=== PATIENT | female | born 1980 | race African-American/Black ===

== ENCOUNTER 2016-06-08 03:53 | Emergency (ER) | payer MEDICAID ==
[~2016-06-08] VITALS: Ht 160 cm; Wt 88.0 kg
[2016-06-08] MEDS ORDERED: ONDANSETRON HCL 4MG/2ML VIAL IV STA (04:23)
[2016-06-08] MEDS ORDERED: SODIUM CHLORIDE 0.9% 1,000 ML IV ONE (04:23)
[2016-06-08] MEDS ORDERED: MORPHINE SULFATE 4 MG/ML CPJ (NOT FOR IM USE) IV STA (04:23)
[2016-06-08 05:13] LABS: BASOPHILS % 0.5 % (0.0-2.0); HEMOGLOBIN. 13.2 g/dL (12.0-16.0); LYMPHOCYTES % 15.1 % (20.0-50.0); MEAN CORPUSCULAR HEMOGLOBIN 28.4 pg (28.0-32.0); MEAN CORPUSCULAR VOLUME 86.1 fL (81.0-99.0); MEAN PLATELET VOLUME 7.3 fl (7.4-10.4); MONOCYTES % 9.8 % (2.0-8.0); NEUTROPHILS % 73.6 % (40.0-76.0); PLATELET 318 x1000/uL (130-400); RED BLOOD CELL COUNT 4.65 mill/uL (4.2-5.4); RED CELL DISTRIBUTION WIDTH 14.7 % (11.6-14.6); WHITE BLOOD COUNT 10.2 x1000/uL (4.5-11.0)
[2016-06-08 05:28] LABS: HCG SCREEN NEGATIVE
[2016-06-08 05:34] LABS: ALBUMIN 3.6 g/dL (3.4-5.0); CALCIUM 8.7 mg/dL (8.5-10.1); CARBON DIOXIDE 26 mEq/L (21-32); ETHANOL BLOOD < 10 mg/dL; INDEX HEMOLYSI 1 (1-3); INDEX ICTERIC 1 (1-4); INDEX LIPEMIC 1 (1-3); LIPASE 116 IU/L (73-393); UREA NITROGEN BLOOD 8 mg/dL (7-21); eGFR > 60 mL/min (>60)
[2016-06-08 05:36] LABS: ALANINE AMINOTRANSFERASE 20 IU/L (13-61)
[2016-06-08 05:41] LABS: ANION GAP 14; CHLORIDE 105 mEq/L (98-107)
[2016-06-08] MEDS ORDERED: KETOROLAC 30MG/ML VIAL IV ONE (05:45)
[2016-06-08] MEDS ORDERED: VISCOUS LIDOCAINE 2% 15 ML UDC PO STA (05:46)
[2016-06-08] MEDS ORDERED: MAGNESIUM/ALUMINUM HYDROXIDE/SIMETHICONE 30ML UDC PO STA (05:46)
[2016-06-08 06:39] LABS: CLARITY URINE CLOUDY (CLEAR); COLOR URINE YELLOW (YELLOW); GLUCOSE URINE NEGATIVE (NEGATIVE); KETONES URINE NEGATIVE (NEGATIVE); LEUKOCYTE ESTERASE URINE 3+ (NEGATIVE); NITRITE URINE NEGATIVE (NEGATIVE); OCCULT BLOOD URINE NEGATIVE (NEGATIVE); PROTEIN URINE NEGATIVE (NEGATIVE); SPECIFIC GRAVITY URINE 1.012 (1.005-1.030); UROBILINOGEN URINE 0.2 E.U./dL (0.2-1.0)
[2016-06-08 06:54] LABS: SQUAMOUS EPITHELIAL CELL URINE 3+ /lpf (RARE/1+)
[2016-06-08 06:58] LABS: WBC URINE 25-50 /hpf (0-2)
[2016-06-08 07:02] LABS: BACTERIA URINE 3+; TRICHOMONAS URINE 2+
[2016-06-08] MEDS: METRONIDAZOLE 500MG TABLET PO NR ×2 (07:39→08:26)
[2016-06-08] MEDS ORDERED: MORPHINE SULFATE 2 MG/ML CPJ (NOT FOR IM USE) IV ONE (07:45)
[2016-06-08 08:00] VITALS: BP 144/89
== END 2016-06-08 08:44 | disposition home or self-care (01) ==
LOC: ER 03:53
DX: A59.9 Trichomoniasis, unspecified (principal); N39.0 Urinary tract infection, site not specified; I10 Essential (primary) hypertension; Z87.440 Personal history of urinary (tract) infections; Z98.51 Tubal ligation status
CPT/HCPCS: 36415; 76705; 80053; 81001; 83690; 84703; 85025; 96361; 96374; 96375; 96376; 99285; G0482; J1885; J2270; J2405; J7030; Z7610

== ENCOUNTER 2016-08-07 21:04 | Emergency (ER) | payer MEDICAID ==
[~2016-08-07] VITALS: Ht 160 cm; Wt 91.0 kg
[2016-08-07 23:38] LABS: CLARITY URINE CLOUDY (CLEAR); COLOR URINE YELLOW (YELLOW); GLUCOSE URINE NEGATIVE (NEGATIVE); KETONES URINE NEGATIVE (NEGATIVE); LEUKOCYTE ESTERASE URINE 3+ (NEGATIVE); NITRITE URINE NEGATIVE (NEGATIVE); OCCULT BLOOD URINE NEGATIVE (NEGATIVE); PH URINE 6.5 (4.5-8.0); PROTEIN URINE NEGATIVE (NEGATIVE); SPECIFIC GRAVITY URINE 1.013 (1.005-1.030); UROBILINOGEN URINE 0.2 E.U./dL (0.2-1.0)
[2016-08-08] MEDS ORDERED: SODIUM CHLORIDE 0.9% 1,000 ML IV ONE
[2016-08-08] MEDS ORDERED: KETOROLAC 30MG/ML VIAL IV ONE
[2016-08-08 00:15] LABS: EOSINOPHILS % 2.3 % (0.0-5.0); HEMATOCRIT. 39.2 % (36.0-48.0); HEMOGLOBIN. 13.2 g/dL (12.0-16.0); LYMPHOCYTES % 35.7 % (20.0-50.0); MEAN CORPUSCULAR HEMOGLOBIN 28.8 pg (28.0-32.0); MEAN CORPUSCULAR VOLUME 85.3 fL (81.0-99.0); MEAN PLATELET VOLUME 7.4 fl (7.4-10.4); PLATELET 288 x1000/uL (130-400); RED CELL DISTRIBUTION WIDTH 13.6 % (11.6-14.6)
[2016-08-08 00:20] LABS: CHLORIDE 104 mEq/L (98-107)
[2016-08-08 00:25] LABS: CARBON DIOXIDE 27 mEq/L (21-32)
[2016-08-08 02:30] VITALS: BP 136/76
== END 2016-08-08 02:30 | disposition home or self-care (01) ==
LOC: ER 21:04
DX: N39.0 Urinary tract infection, site not specified (principal); I10 Essential (primary) hypertension; F17.200 Nicotine dependence, unspecified, uncomplicated; F12.90 Cannabis use, unspecified, uncomplicated
CPT/HCPCS: 36415; 80048; 81001; 83690; 85025; 96361; 96374; 99284; J1885; J7030; Z7610

== ENCOUNTER 2017-03-25 13:37 | Emergency (ER) | payer MEDICAID ==
[~2017-03-25] VITALS: Ht 167.6 cm; Wt 74.0 kg
[2017-03-25 13:41] VITALS: BP 131/80
[2017-03-25] MEDS ORDERED: SODIUM CHLORIDE 0.9% 1,000 ML IV ONE (14:32)
[2017-03-25] MEDS ORDERED: KETOROLAC 30MG/ML VIAL IV ONE (14:45)
[2017-03-25 14:54] LABS: BASOPHILS % 0.5 % (0.0-2.0); EOSINOPHILS % 1.2 % (0.0-5.0); HEMATOCRIT. 40.5 % (36.0-48.0); HEMOGLOBIN. 13.3 g/dL (12.0-16.0); LYMPHOCYTES % 16.9 % (20.0-50.0); MEAN CORPUSCULAR HEMOGLOBIN 28.1 pg (28.0-32.0); MEAN CORPUSCULAR VOLUME 85.7 fL (81.0-99.0); MONOCYTES % 9.4 % (2.0-8.0); PLATELET 314 x1000/uL (130-400); RED BLOOD CELL COUNT 4.73 mill/uL (4.2-5.4); RED CELL DISTRIBUTION WIDTH 14.1 % (11.6-14.6)
[2017-03-25 15:09] LABS: CHLORIDE 105 mEq/L (98-107)
[2017-03-25 15:17] LABS: HCG SCREEN NEGATIVE
[2017-03-25 16:02] LABS: CLARITY URINE CLOUDY (CLEAR); COLOR URINE YELLOW (YELLOW); KETONES URINE NEGATIVE (NEGATIVE); LEUKOCYTE ESTERASE URINE 3+ (NEGATIVE); NITRITE URINE NEGATIVE (NEGATIVE); OCCULT BLOOD URINE 3+ (NEGATIVE); PH URINE 8.5 (4.5-8.0); PROTEIN URINE NEGATIVE (NEGATIVE); SPECIFIC GRAVITY URINE 1.014 (1.005-1.030); UROBILINOGEN URINE 0.2 E.U./dL (0.2-1.0)
== END 2017-03-25 18:12 | disposition home or self-care (01) ==
LOC: ER 14:03
DX: A59.01 Trichomonal vulvovaginitis (principal); B37.3 Candidiasis of vulva and vagina; N39.0 Urinary tract infection, site not specified; F12.10 Cannabis abuse, uncomplicated
CPT/HCPCS: 36415; 76856; 80053; 81001; 83690; 84703; 85025; 96361; 96374; 99285; J1885; J7030

== ENCOUNTER 2017-11-29 15:05 | Emergency (ER) | payer MEDICAID ==
[~2017-11-29] VITALS: Ht 157.5 cm; Wt 91.0 kg
[2017-11-29] MEDS ORDERED: KETOROLAC 15MG/ML VIAL IM ONE (17:00)
[2017-11-29 17:28] LABS: KETONES URINE NEGATIVE (NEGATIVE); LEUKOCYTE ESTERASE URINE 2+ (NEGATIVE); NITRITE URINE NEGATIVE (NEGATIVE); OCCULT BLOOD URINE 3+ (NEGATIVE); PROTEIN URINE 1+ (NEGATIVE); SPECIFIC GRAVITY URINE 1.005 (1.005-1.030); UROBILINOGEN URINE 0.2 E.U./dL (0.2-1.0)
[2017-11-29 17:30] LABS: CLARITY URINE HAZY (CLEAR)
[2017-11-29 17:31] LABS: COLOR URINE RED (YELLOW)
[2017-11-29 17:50] VITALS: BP 131/52
== END 2017-11-29 18:28 | disposition home or self-care (01) ==
LOC: ER 15:05
DX: N94.6 Dysmenorrhea, unspecified (principal); I10 Essential (primary) hypertension; F17.200 Nicotine dependence, unspecified, uncomplicated
CPT/HCPCS: 81003; 81025; 87086; 96372; 99284; J1885

== ENCOUNTER 2018-07-27 04:56 | Emergency (ER) | payer MEDICAID ==
[~2018-07-27] VITALS: Ht 160 cm; Wt 91.0 kg
[2018-07-27 05:48] VITALS: BP 132/94
== END 2018-07-27 07:49 | disposition left against medical advice (07) ==
LOC: ER 04:56
DX: Z53.21 Procedure and treatment not carried out due to patient leaving prior to being seen by health care provider (principal)

== ENCOUNTER 2018-08-24 21:32 | Emergency (ER) | payer MEDICAID ==
[~2018-08-24] VITALS: Ht 160 cm; Wt 91.0 kg
[2018-08-25] MEDS ORDERED: LACTULOSE 20G/30ML UDC PO ONE (02:00)
[2018-08-25] MEDS ORDERED: LORAZEPAM 1MG TABLET PO ONE (02:00)
[2018-08-25 02:19] LABS: BASOPHILS % 0.8 % (0.0-2.0); CHLORIDE 107 mEq/L (98-107); EOSINOPHILS % 1.7 % (0.0-5.0); HEMATOCRIT. 37.2 % (36.0-48.0); HEMOGLOBIN. 12.3 g/dL (12.0-16.0); LYMPHOCYTES % 39.9 % (20.0-50.0); MEAN CORPUSCULAR HEMOGLOBIN 28.6 pg (28.0-32.0); MEAN CORPUSCULAR VOLUME 86.2 fL (81.0-99.0); MEAN PLATELET VOLUME 7.2 fl (7.4-10.4); MONOCYTES % 10.4 % (2.0-8.0); NEUTROPHILS % 47.2 % (40.0-76.0); PLATELET 299 x1000/uL (130-400); RED BLOOD CELL COUNT 4.32 mill/uL (4.2-5.4)
[2018-08-25 04:09] LABS: CLARITY URINE CLEAR (CLEAR); COLOR URINE YELLOW (YELLOW); KETONES URINE NEGATIVE (NEGATIVE); LEUKOCYTE ESTERASE URINE TRACE (NEGATIVE); NITRITE URINE NEGATIVE (NEGATIVE); OCCULT BLOOD URINE 2+ (NEGATIVE); PH URINE 5.5 (4.5-8.0); PROTEIN URINE NEGATIVE (NEGATIVE); SPECIFIC GRAVITY URINE 1.015 (1.005-1.030); UROBILINOGEN URINE 0.2 E.U./dL (0.2-1.0)
[2018-08-25 04:27] LABS: *COCAINE SCREEN URINE NEGATIVE (NEGATIVE)
[2018-08-25 04:28] LABS: *AMPHETAMINES SCREEN URINE NEGATIVE (NEGATIVE); *BARBITURATES SCREEN URINE NEGATIVE (NEGATIVE); CANNABINOID URINE SCREEN NEGATIVE (NEGATIVE); METHADONE URINE SCREEN NEGATIVE (NEGATIVE); PHENCYCLIDINE URINE SCREEN NEGATIVE (NEGATIVE)
[2018-08-25 04:32] LABS: *BENZODIAZEPINES SCREEN URINE PRESUMTIVE POSITIVE (NEGATIVE); OPIATES URINE SCREEN PRESUMTIVE POSITIVE (NEGATIVE)
[2018-08-25 06:08] VITALS: BP 118/71
== END 2018-08-25 06:13 | disposition home or self-care (01) ==
LOC: ER 21:32
DX: M54.2 Cervicalgia (principal); N39.0 Urinary tract infection, site not specified; V89.2XXA Person injured in unspecified motor-vehicle accident, traffic, initial encounter; Y93.9 Activity, unspecified; Y92.410 Unspecified street and highway as the place of occurrence of the external cause
CPT/HCPCS: 36415; 72040; 80305; 99284

== ENCOUNTER 2018-09-21 23:12 | Inpatient (IN) | payer MEDICAID ==
[~2018-09-21] VITALS: Ht 312.4 cm; Wt 91.6 kg
[2018-09-22] MEDS ORDERED: MAGNESIUM/ALUMINUM HYDROXIDE/SIMETHICONE 30ML UDC PO STA (00:16)
[2018-09-22 00:58] LABS: CHLORIDE 103 mEq/L (98-107)
[2018-09-22 01:10] LABS: BASOPHILS % 1.2 % (0.0-2.0); EOSINOPHILS % 1.8 % (0.0-5.0); HEMATOCRIT. 37.4 % (36.0-48.0); HEMOGLOBIN. 12.7 g/dL (12.0-16.0); LYMPHOCYTES % 36.8 % (20.0-50.0); MEAN CORPUSCULAR VOLUME 85.4 fL (81.0-99.0); MEAN PLATELET VOLUME 7.3 fl (7.4-10.4); MONOCYTES % 9.8 % (2.0-8.0); NEUTROPHILS % 50.4 % (40.0-76.0); PLATELET 272 x1000/uL (130-400); RED BLOOD CELL COUNT 4.38 mill/uL (4.2-5.4); RED CELL DISTRIBUTION WIDTH 14.1 % (11.6-14.6)
[2018-09-22 02:30] LABS: *AMPHETAMINES SCREEN URINE NEGATIVE (NEGATIVE); *BARBITURATES SCREEN URINE NEGATIVE (NEGATIVE); *COCAINE SCREEN URINE NEGATIVE (NEGATIVE)
[2018-09-22 02:32] LABS: CANNABINOID URINE SCREEN NEGATIVE (NEGATIVE); PHENCYCLIDINE URINE SCREEN NEGATIVE (NEGATIVE)
[2018-09-22 03:04] LABS: *BENZODIAZEPINES SCREEN URINE PRESUMTIVE POSITIVE (NEGATIVE); METHADONE URINE SCREEN PRESUMTIVE POSITIVE (NEGATIVE); OPIATES URINE SCREEN PRESUMTIVE POSITIVE (NEGATIVE)
[2018-09-22] MEDS ORDERED: ASPIRIN 325MG TABLET PO ONE (05:00)
[2018-09-22 08:45] VITALS: BP 119/82
[2018-09-22] MEDS ORDERED: ONDANSETRON HCL 4MG/2ML INJ IV PRN (10:00)
[2018-09-22] MEDS ORDERED: ACETAMINOPHEN 325MG TABLET PO PRN (10:00)
[2018-09-22] MEDS: FAMOTIDINE 20MG TABLET PO SCH ×2 (10:40→20:46)
[2018-09-22 12:00] VITALS: BP 132/88
[2018-09-22] MEDS ORDERED: HYDROCODONE/ACETAMINOPHEN 5/325MG TABLET PO PRN (14:15)
[2018-09-22] MEDS ORDERED: KETOROLAC 15MG/ML VIAL IV PRN (14:15)
[2018-09-22 20:00] VITALS: BP 156/97
[2018-09-22] MEDS: ENOXAPARIN 30MG/0.3ML SYR SUBCUT SCH (20:44)
[2018-09-22] MEDS: LORAZEPAM 1MG TABLET PO PRN (21:46)
[2018-09-23] VITALS: BP 143/86
[2018-09-23 04:00] VITALS: BP 117/72
[2018-09-23 08:00] VITALS: BP 117/65
[2018-09-23] MEDS: ENOXAPARIN 30MG/0.3ML SYR SUBCUT SCH (08:43)
[2018-09-23] MEDS: FAMOTIDINE 20MG TABLET PO SCH (08:43)
[2018-09-23] MEDS ORDERED: ASPIRIN 81MG TABLET PO SCH (09:00)
[2018-09-23 11:49] VITALS: BP 120/78
[2018-09-23 13:07] LABS: BASOPHILS % 0.9 % (0.0-2.0); EOSINOPHILS % 1.1 % (0.0-5.0); HEMATOCRIT. 41.5 % (36.0-48.0); HEMOGLOBIN. 13.9 g/dL (12.0-16.0); LYMPHOCYTES % 25.9 % (20.0-50.0); MEAN CORPUSCULAR VOLUME 86.3 fL (81.0-99.0); MEAN PLATELET VOLUME 7.3 fl (7.4-10.4); MONOCYTES % 10.2 % (2.0-8.0); NEUTROPHILS % 61.9 % (40.0-76.0); PLATELET 324 x1000/uL (130-400); RED CELL DISTRIBUTION WIDTH 14.1 % (11.6-14.6)
[2018-09-23 13:36] LABS: CHLORIDE 106 mEq/L (98-107)
[2018-09-23] MEDS: LORAZEPAM 1MG TABLET PO PRN (13:56)
[2018-09-23 15:21] VITALS: BP 122/65
== END 2018-09-23 15:35 | disposition home or self-care (01) | DRG 58 ==
LOC: ER 23:46 → 8WST 09-22 05:13 → EDBEDREQTM 09-22 05:16 → EDBEDREQ 09-22 05:16 → ENRESERV 09-22 07:15
PROVIDERS: ADMIT Internal Medicine; ATTEND Internal Medicine
DX: R20.0 Anesthesia of skin (principal); F17.210 Nicotine dependence, cigarettes, uncomplicated; I10 Essential (primary) hypertension; Z91.14 Patient's other noncompliance with medication regimen; Z91.19 Patient's noncompliance with other medical treatment and regimen; G89.4 Chronic pain syndrome; Z59.0 Homelessness; Z98.51 Tubal ligation status; Z88.9 Allergy status to unspecified drugs, medicaments and biological substances; Z71.6 Tobacco abuse counseling
CPT/HCPCS: 36415; 70551; 71045; 80048; 80305; 93005; 97161; 99285; J1650; J1885; J2405

== ENCOUNTER 2018-09-25 22:15 | Emergency (ER) | payer MEDICAID ==
[~2018-09-25] VITALS: Ht 160 cm; Wt 77.5 kg
[2018-09-25 22:45] VITALS: BP 122/78
== END 2018-09-26 00:30 | disposition left against medical advice (07) ==
LOC: ER 22:15
DX: Z53.21 Procedure and treatment not carried out due to patient leaving prior to being seen by health care provider (principal)

== ENCOUNTER 2018-10-13 21:52 | Emergency (ER) | payer MEDICAID ==
[~2018-10-13] VITALS: Ht 160 cm; Wt 93.8 kg
[2018-10-13] MEDS ORDERED: LORAZEPAM 0.5MG TABLET PO ONE (22:15)
[2018-10-13 23:03] VITALS: BP 140/89
== END 2018-10-13 23:05 | disposition home or self-care (01) ==
LOC: ER 22:06
DX: F41.9 Anxiety disorder, unspecified (principal); I10 Essential (primary) hypertension; F17.200 Nicotine dependence, unspecified, uncomplicated; Z88.8 Allergy status to other drugs, medicaments and biological substances; Z98.51 Tubal ligation status
CPT/HCPCS: 93005; 99283

== ENCOUNTER 2018-10-24 18:37 | Emergency (ER) | payer MEDICAID ==
[~2018-10-24] VITALS: Ht 160 cm; Wt 91.0 kg
[2018-10-24] MEDS ORDERED: ONDANSETRON 4MG ODT PO STA (21:57)
[2018-10-24] MEDS ORDERED: ACETAMINOPHEN WITH CODEINE 300/30MG TABLET PO STA ×2 (21:57→23:56)
[2018-10-24 23:23] LABS: CHLORIDE 100 mEq/L (98-107)
[2018-10-24 23:30] LABS: BASOPHILS % 0.8 % (0.0-2.0); EOSINOPHILS % 1.6 % (0.0-5.0); HEMATOCRIT. 40.9 % (36.0-48.0); HEMOGLOBIN. 13.7 g/dL (12.0-16.0); LYMPHOCYTES % 35.5 % (20.0-50.0); MEAN CORPUSCULAR HEMOGLOBIN 28.7 pg (28.0-32.0); MEAN CORPUSCULAR VOLUME 85.9 fL (81.0-99.0); MEAN PLATELET VOLUME 7.4 fl (7.4-10.4); MONOCYTES % 9.4 % (2.0-8.0); NEUTROPHILS % 52.7 % (40.0-76.0); PLATELET 279 x1000/uL (130-400); RED BLOOD CELL COUNT 4.77 mill/uL (4.2-5.4); RED CELL DISTRIBUTION WIDTH 14.2 % (11.6-14.6)
[2018-10-24 23:33] LABS: CLARITY URINE CLEAR (CLEAR); COLOR URINE YELLOW (YELLOW); KETONES URINE NEGATIVE (NEGATIVE); LEUKOCYTE ESTERASE URINE NEGATIVE (NEGATIVE); NITRITE URINE NEGATIVE (NEGATIVE); OCCULT BLOOD URINE NEGATIVE (NEGATIVE); PROTEIN URINE NEGATIVE (NEGATIVE); UROBILINOGEN URINE 0.2 E.U./dL (0.2-1.0)
[2018-10-24] MEDS ORDERED: ONDANSETRON HCL 4MG/2ML INJ IM STA (23:56)
[2018-10-25] MEDS ORDERED: ONDANSETRON 4MG ODT PO STA (00:14)
[2018-10-25 00:48] VITALS: BP 140/89
== END 2018-10-25 00:50 | disposition home or self-care (01) ==
LOC: ER 18:37
DX: M60.9 Myositis, unspecified (principal); B34.9 Viral infection, unspecified; I10 Essential (primary) hypertension; F17.210 Nicotine dependence, cigarettes, uncomplicated; F12.10 Cannabis abuse, uncomplicated; Z98.51 Tubal ligation status
CPT/HCPCS: 36415; 80053; 81003; 85025; 93005; 99284; Q0162

== ENCOUNTER 2019-01-29 05:05 | Emergency (ER) | payer MEDICAID ==
[~2019-01-29] VITALS: Ht 160 cm; Wt 84.0 kg
[2019-01-29 06:49] LABS: EOSINOPHILS % 1.2 % (0.0-5.0); HEMATOCRIT. 40.6 % (36.0-48.0); HEMOGLOBIN. 13.9 g/dL (12.0-16.0); LYMPHOCYTES % 28.9 % (20.0-50.0); MEAN CORPUSCULAR HEMOGLOBIN 29.5 pg (28.0-32.0); MEAN CORPUSCULAR VOLUME 86.6 fL (81.0-99.0); MEAN PLATELET VOLUME 6.9 fl (7.4-10.4); MONOCYTES % 10.2 % (2.0-8.0); NEUTROPHILS % 58.7 % (40.0-76.0); PLATELET 321 x1000/uL (130-400); RED BLOOD CELL COUNT 4.69 mill/uL (4.2-5.4); RED CELL DISTRIBUTION WIDTH 14.5 % (11.6-14.6)
[2019-01-29 06:53] LABS: CHLORIDE 105 mEq/L (98-107)
[2019-01-29 06:56] LABS: CLARITY URINE CLOUDY (CLEAR); COLOR URINE YELLOW (YELLOW); KETONES URINE NEGATIVE (NEGATIVE); LEUKOCYTE ESTERASE URINE 1+ (NEGATIVE); NITRITE URINE NEGATIVE (NEGATIVE); OCCULT BLOOD URINE 3+ (NEGATIVE); PROTEIN URINE NEGATIVE (NEGATIVE); SPECIFIC GRAVITY URINE 1.025 (1.005-1.030); UROBILINOGEN URINE 0.2 E.U./dL (0.2-1.0)
[2019-01-29 06:57] LABS: HCG SCREEN NEGATIVE
[2019-01-29 06:58] LABS: INR 1.1
[2019-01-29] MEDS ORDERED: ONDANSETRON HCL 4MG/2ML INJ IV ONE (07:00)
[2019-01-29] MEDS ORDERED: ACETAMINOPHEN 325MG TABLET PO ONE (07:00)
[2019-01-29 08:03] LABS: *AMPHETAMINES SCREEN URINE NEGATIVE (NEGATIVE); *BARBITURATES SCREEN URINE NEGATIVE (NEGATIVE)
[2019-01-29 08:04] LABS: *COCAINE SCREEN URINE NEGATIVE (NEGATIVE); METHADONE URINE SCREEN NEGATIVE (NEGATIVE); PHENCYCLIDINE URINE SCREEN NEGATIVE (NEGATIVE)
[2019-01-29 08:09] LABS: *BENZODIAZEPINES SCREEN URINE PRESUMTIVE POSITIVE (NEGATIVE); OPIATES URINE SCREEN PRESUMTIVE POSITIVE (NEGATIVE)
[2019-01-29 08:10] LABS: CANNABINOID URINE SCREEN PRESUMTIVE POSITIVE (NEGATIVE)
[2019-01-29 09:03] LABS: CREATINE KINASE 202 IU/L (26-192)
[2019-01-29 09:27] VITALS: BP 100/68
== END 2019-01-29 09:25 | disposition home or self-care (01) ==
LOC: ER 05:05
DX: R53.81 Other malaise (principal); I10 Essential (primary) hypertension; F17.200 Nicotine dependence, unspecified, uncomplicated; Z88.6 Allergy status to analgesic agent; Z98.51 Tubal ligation status
CPT/HCPCS: 36415; 71045; 80053; 80305; 81003; 81025; 82550; 84703; 85025; 85610; 87804; 96374; 99284; J2405; Z7610

== ENCOUNTER 2019-07-17 21:08 | Emergency (ER) | payer MEDICAID ==
[~2019-07-17] VITALS: Ht 170.2 cm; Wt 97.0 kg
[2019-07-17] MEDS ORDERED: OXYCODONE HCL/ACETAMINOPHEN 5/325MG TABLET PO ONE (22:30)
[2019-07-17] MEDS ORDERED: LORAZEPAM 0.5MG TABLET PO ONE (22:30)
[2019-07-17 22:39] LABS: BASOPHILS % 1.1 % (0.0-2.0); EOSINOPHILS % 1.7 % (0.0-5.0); HEMATOCRIT. 39.5 % (36.0-48.0); HEMOGLOBIN. 13.6 g/dL (12.0-16.0); LYMPHOCYTES % 41.8 % (20.0-50.0); MEAN CORPUSCULAR HEMOGLOBIN 29.7 pg (28.0-32.0); MEAN CORPUSCULAR VOLUME 86.5 fL (81.0-99.0); MEAN PLATELET VOLUME 7.1 fl (7.4-10.4); MONOCYTES % 11.1 % (2.0-8.0); NEUTROPHILS % 44.3 % (40.0-76.0); PLATELET 288 x1000/uL (130-400); RED BLOOD CELL COUNT 4.57 mill/uL (4.2-5.4); RED CELL DISTRIBUTION WIDTH 14.5 % (11.6-14.6)
[2019-07-17 22:43] LABS: CLARITY URINE CLEAR (CLEAR); COLOR URINE YELLOW (YELLOW); KETONES URINE NEGATIVE (NEGATIVE); LEUKOCYTE ESTERASE URINE TRACE (NEGATIVE); NITRITE URINE NEGATIVE (NEGATIVE); OCCULT BLOOD URINE NEGATIVE (NEGATIVE); PROTEIN URINE NEGATIVE (NEGATIVE); SPECIFIC GRAVITY URINE 1.013 (1.005-1.030); UROBILINOGEN URINE 0.2 E.U./dL (0.2-1.0)
[2019-07-17 22:45] LABS: CHLORIDE 106 mEq/L (98-107)
[2019-07-17 22:46] LABS: HCG SCREEN NEGATIVE
[2019-07-17 22:48] LABS: PROTHROMBIN TIME 10.7 sec (9.6-11.0)
[2019-07-18 00:32] VITALS: BP 147/91
== END 2019-07-18 00:41 | disposition home or self-care (01) ==
LOC: ER 21:08
DX: D25.9 Leiomyoma of uterus, unspecified (principal); M54.5 Low back pain; F41.9 Anxiety disorder, unspecified; I10 Essential (primary) hypertension; Z98.51 Tubal ligation status; Z88.8 Allergy status to other drugs, medicaments and biological substances
CPT/HCPCS: 36415; 76830; 76856; 80053; 81003; 84703; 85025; 99284

== ENCOUNTER 2019-12-21 12:26 | Emergency (ER) | payer MEDICAID ==
[~2019-12-21] VITALS: Ht 160 cm; Wt 100.0 kg
[2019-12-21 12:33] VITALS: BP 157/107
[2019-12-21] MEDS ORDERED: VISCOUS LIDOCAINE 2% 15 ML UDC PO STA (15:32)
[2019-12-21] MEDS ORDERED: MAGNESIUM/ALUMINUM HYDROXIDE/SIMETHICONE 30ML UDC PO STA (15:32)
[2019-12-21] MEDS ORDERED: ONDANSETRON HCL 4MG/2ML INJ IV ONE (15:45)
[2019-12-21 15:46] LABS: BASOPHILS % 0.7 % (0.0-2.0); EOSINOPHILS % 1.1 % (0.0-5.0); HEMATOCRIT. 40.4 % (36.0-48.0); HEMOGLOBIN. 13.7 g/dL (12.0-16.0); LYMPHOCYTES % 26.4 % (20.0-50.0); MEAN CORPUSCULAR HEMOGLOBIN 29.3 pg (28.0-32.0); MEAN CORPUSCULAR VOLUME 86.6 fL (81.0-99.0); MEAN PLATELET VOLUME 9.4 fl (7.4-10.4); MONOCYTES % 13.2 % (2.0-8.0); NEUTROPHILS % 58.6 % (40.0-76.0); PLATELET 262 x1000/uL (130-400); RED BLOOD CELL COUNT 4.67 mill/uL (4.2-5.4); RED CELL DISTRIBUTION WIDTH 14.5 % (11.6-14.6)
[2019-12-21 15:47] LABS: CHLORIDE 103 mEq/L (98-107)
[2019-12-21 15:50] LABS: CLARITY URINE CLOUDY (CLEAR); COLOR URINE YELLOW (YELLOW); KETONES URINE NEGATIVE (NEGATIVE); LEUKOCYTE ESTERASE URINE 2+ (NEGATIVE); NITRITE URINE NEGATIVE (NEGATIVE); OCCULT BLOOD URINE NEGATIVE (NEGATIVE); PH URINE 7.5 (4.5-8.0); PROTEIN URINE NEGATIVE (NEGATIVE); SPECIFIC GRAVITY URINE 1.027 (1.005-1.030); UROBILINOGEN URINE 0.2 E.U./dL (0.2-1.0)
[2019-12-21] MEDS ORDERED: CEPHALEXIN 250MG CAPSULE PO NR (16:45)
[2019-12-21] MEDS ORDERED: OMEPRAZOLE 20MG CAPSULE EXTENDED RELEASE PO NR (16:45)
== END 2019-12-21 17:51 | disposition home or self-care (01) ==
LOC: ER 12:26
DX: K29.70 Gastritis, unspecified, without bleeding (principal); K21.9 Gastro-esophageal reflux disease without esophagitis; R10.13 Epigastric pain; N39.0 Urinary tract infection, site not specified; I10 Essential (primary) hypertension; Z98.51 Tubal ligation status
CPT/HCPCS: 36415; 80053; 81003; 81025; 83690; 84132; 85025; 93005; 96374; 99284; J2405

== ENCOUNTER 2020-01-05 16:51 | Emergency (ER) | payer MEDICAID ==
[~2020-01-05] VITALS: Ht 160 cm; Wt 100.0 kg
[2020-01-05] MEDS ORDERED: MORPHINE SULFATE 4 MG/ML CPJ (NOT FOR IM USE) IV STA (19:16)
[2020-01-05] MEDS ORDERED: ONDANSETRON HCL 4MG/2ML INJ IV STA (19:16)
[2020-01-05] MEDS ORDERED: SODIUM CHLORIDE 0.9% 1,000 ML IV ONE (19:30)
[2020-01-05 19:41] LABS: BASOPHILS % 1.1 % (0.0-2.0); EOSINOPHILS % 1.5 % (0.0-5.0); HEMATOCRIT. 38.7 % (36.0-48.0); LYMPHOCYTES % 31.4 % (20.0-50.0); MEAN CORPUSCULAR HEMOGLOBIN 29.3 pg (28.0-32.0); MEAN PLATELET VOLUME 7.2 fl (7.4-10.4); MONOCYTES % 9.4 % (2.0-8.0); NEUTROPHILS % 56.6 % (40.0-76.0); PLATELET 334 x1000/uL (130-400); RED BLOOD CELL COUNT 4.45 mill/uL (4.2-5.4); RED CELL DISTRIBUTION WIDTH 14.7 % (11.6-14.6)
[2020-01-05 19:53] LABS: CHLORIDE 107 mEq/L (98-107)
[2020-01-05 19:55] LABS: HCG SCREEN NEGATIVE
[2020-01-05] MEDS ORDERED: IOHEXOL-300 100 ML BOTTLE ONE (20:47)
[2020-01-05 21:13] LABS: CLARITY URINE CLEAR (CLEAR); COLOR URINE YELLOW (YELLOW); KETONES URINE NEGATIVE (NEGATIVE); LEUKOCYTE ESTERASE URINE 2+ (NEGATIVE); NITRITE URINE NEGATIVE (NEGATIVE); OCCULT BLOOD URINE NEGATIVE (NEGATIVE); PH URINE 6.5 (4.5-8.0); PROTEIN URINE NEGATIVE (NEGATIVE); SPECIFIC GRAVITY URINE 1.014 (1.005-1.030); UROBILINOGEN URINE 0.2 E.U./dL (0.2-1.0)
[2020-01-06 01:00] VITALS: BP 149/95
== END 2020-01-06 01:06 | disposition home or self-care (01) ==
LOC: ER 16:51
DX: R10.31 Right lower quadrant pain (principal); D21.9 Benign neoplasm of connective and other soft tissue, unspecified; I10 Essential (primary) hypertension; Z98.51 Tubal ligation status; Z88.6 Allergy status to analgesic agent
CPT/HCPCS: 36415; 74177; 76705; 76856; 80053; 81003; 83690; 84703; 85025; 93005; 96374; 96375; 99285; J2270; J2405; J7030; Q9967

== ENCOUNTER 2020-09-16 23:23 | Emergency (ER) | payer MEDICAID ==
[~2020-09-16] VITALS: Ht 160 cm; Wt 100.0 kg
[2020-09-17] MEDS ORDERED: LIDOCAINE HCL/EPINEPHRINE 1%-EPI 1:100,000 20 ML VIAL INFIL ONE (02:45)
[2020-09-17] MEDS ORDERED: HYDROCODONE/ACETAMINOPHEN 5/325MG TABLET PO ONE (02:45)
[2020-09-17] MEDS ORDERED: BACITRACIN ZINC OINT UDPKT TOP ONE (02:45)
[2020-09-17] MEDS ORDERED: SULF1TAB48 MT (03:59)
[2020-09-17] MEDS ORDERED: CEPH500C2 MT (03:59)
[2020-09-17 04:07] VITALS: BP 139/88
== END 2020-09-17 04:16 | disposition home or self-care (01) ==
LOC: ER 23:23
DX: L02.31 Cutaneous abscess of buttock (principal); I10 Essential (primary) hypertension; E78.00 Pure hypercholesterolemia, unspecified; F17.210 Nicotine dependence, cigarettes, uncomplicated; Z98.51 Tubal ligation status; Z88.8 Allergy status to other drugs, medicaments and biological substances
CPT/HCPCS: 99283; J3490; Z7610

== ENCOUNTER 2021-07-17 10:55 | Emergency (ER) | payer MEDICAID ==
[~2021-07-17] VITALS: Ht 157.5 cm; Wt 83.0 kg
[~2021-07-17 10:55] MED LIST: CEPH500C2 MT; SULF1TAB48 MT
[2021-07-17 11:02] VITALS: BP 173/107
[2021-07-17 13:14] LABS: BASOPHILS % 1.2 % (0.0-2.0); EOSINOPHILS % 1.8 % (0.0-5.0); HEMATOCRIT. 39.6 % (36.0-48.0); HEMOGLOBIN. 13.2 g/dL (12.0-16.0); LYMPHOCYTES % 35.3 % (20.0-50.0); MEAN CORPUSCULAR HEMOGLOBIN 28.1 pg (28.0-32.0); MEAN CORPUSCULAR VOLUME 84.6 fL (81.0-99.0); MEAN PLATELET VOLUME 6.9 fl (7.4-10.4); MONOCYTES % 12.3 % (2.0-8.0); NEUTROPHILS % 49.4 % (40.0-76.0); PLATELET 344 x1000/uL (130-400); RED BLOOD CELL COUNT 4.68 mill/uL (4.2-5.4); RED CELL DISTRIBUTION WIDTH 15.1 % (11.6-14.6)
[2021-07-17 13:15] LABS: CLARITY URINE CLEAR (CLEAR); COLOR URINE YELLOW (YELLOW); KETONES URINE NEGATIVE (NEGATIVE); LEUKOCYTE ESTERASE URINE TRACE (NEGATIVE); NITRITE URINE NEGATIVE (NEGATIVE); OCCULT BLOOD URINE 3+ (NEGATIVE); PROTEIN URINE TRACE (NEGATIVE); SPECIFIC GRAVITY URINE 1.013 (1.005-1.030); UROBILINOGEN URINE 0.2 E.U./dL (0.2-1.0)
[2021-07-17 13:25] LABS: CHLORIDE 104 mEq/L (98-107)
[2021-07-17] MEDS ORDERED: HYDR30CR80 TP (13:42)
[2021-07-17] MEDS ORDERED: HYDR25TA MT (13:51)
== END 2021-07-17 14:14 | disposition home or self-care (01) ==
LOC: ER 10:55
DX: K64.9 Unspecified hemorrhoids (principal); E78.00 Pure hypercholesterolemia, unspecified; I10 Essential (primary) hypertension; Z88.8 Allergy status to other drugs, medicaments and biological substances; Z98.51 Tubal ligation status
CPT/HCPCS: 36415; 80053; 81003; 85025; 99283

== ENCOUNTER 2023-03-10 19:49 | Emergency (ER) | payer MEDICAID, OTHER ==
[~2023-03-10] VITALS: Ht 160 cm; Wt 106.0 kg
[~2023-03-10 19:49] MED LIST changes: +HYDR25TA MT; +HYDR30CR80 TP
[2023-03-10 20:26] VITALS: O2SAT 96
[2023-03-10 22:32] LABS: CLARITY URINE CLEAR (CLEAR); COLOR URINE YELLOW (YELLOW); GLUCOSE URINE NEGATIVE (NEGATIVE); KETONES URINE NEGATIVE (NEGATIVE); LEUKOCYTE ESTERASE URINE TRACE (NEGATIVE); NITRITE URINE NEGATIVE (NEGATIVE); OCCULT BLOOD URINE NEGATIVE (NEGATIVE); PH URINE 5.5 (4.5-8.0); PROTEIN URINE NEGATIVE (NEGATIVE); SPECIFIC GRAVITY URINE 1.015 (1.005-1.030); UROBILINOGEN URINE 0.2 E.U./dL (0.2-1.0)
[2023-03-10 22:44] LABS: BASOPHILS % 0.9 % (0.0-2.0); EOSINOPHILS % 1.8 % (0.0-5.0); HEMATOCRIT. 40.6 % (36.0-48.0); LYMPHOCYTES % 27.8 % (20.0-50.0); MEAN CORPUSCULAR HEMOGLOBIN 26.2 pg (28.0-32.0); MEAN CORPUSCULAR HGB CONC 32.1 g/dL (31.0-37.0); MEAN CORPUSCULAR VOLUME 81.4 fL (81.0-99.0); MEAN PLATELET VOLUME 7.2 fl (7.4-10.4); MONOCYTES % 10.3 % (2.0-8.0); NEUTROPHILS % 59.2 % (40.0-76.0); PLATELET 364 x1000/uL (130-400); RED BLOOD CELL COUNT 4.99 mill/uL (4.2-5.4); RED CELL DISTRIBUTION WIDTH 14.6 % (11.6-14.6); WHITE BLOOD COUNT 12.5 x1000/uL (4.5-11.0)
[2023-03-10 22:55] LABS: BACTERIA URINE 2+; RBC URINE NONE SEEN /hpf (0-2); SQUAMOUS EPITHELIAL CELL URINE 1+ /lpf (RARE/1+)
[2023-03-10 23:01] LABS: ALANINE AMINOTRANSFERASE 32 IU/L (10-49); ALBUMIN 4.2 g/dL (3.2-4.8); ASPARTATE AMINOTRANSFERASE 27 IU/L (<34); BILIRUBIN TOTAL 0.2 mg/dL (0.1-1.0); CALCIUM 9.5 mg/dL (8.7-10.4); CARBON DIOXIDE 25 mEq/L (21-32); CHLORIDE 101 mEq/L (98-107); CREATININE 0.7 mg/dL (0.6-1.0); GLUCOSE 103 mg/dL (70-105); POTASSIUM 3.7 mEq/L (3.5-5.1); PROTEIN TOTAL 8.3 g/dL (6.0-8.3); SODIUM 133 mEq/L (136-145); UREA NITROGEN BLOOD 12 mg/dL (9-23)
[2023-03-10] MEDS ORDERED: SULF1TAB48 MT ×3 (23:18→23:20)
[2023-03-10] MEDS ORDERED: TOPUD MT ×3 (23:18→23:20)
[2023-03-10 23:47] VITALS: BP 166/99; PULSE 97; RESP 18; TEMP 98
== END 2023-03-10 23:48 | disposition home or self-care (01) ==
LOC: ER 19:49
DX: N39.0 Urinary tract infection, site not specified (principal); I10 Essential (primary) hypertension; Z88.8 Allergy status to other drugs, medicaments and biological substances
CPT/HCPCS: 36415; 80053; 81003; 81025; 85025; 99283